=== PATIENT | male | born 1995 | race Two or more races ===

== ENCOUNTER 2020-02-04 08:45 | Emergency (ER) | payer MEDICAID ==
[~2020-02-04] VITALS: Ht 182.9 cm; Wt 101.9 kg
[2020-02-04 08:49] VITALS: BP 147/83
--- NOTE | 2020-02-04 09:19 | NUR ---
Patient given discharge instructions and Rx, they have confirmed that they understand the instructions. Patient ambulatory with steady gait.
== END 2020-02-04 09:19 | disposition home or self-care (01) ==
LOC: ED 09:08
DX: K08.89 Other specified disorders of teeth and supporting structures (principal); F17.200 Nicotine dependence, unspecified, uncomplicated
CPT/HCPCS: 99283